=== PATIENT | female | born 1955 | race Caucasian/White ===

== ENCOUNTER 2019-02-20 08:08 | Inpatient (IN) ==
[2019-02-20] MEDS ORDERED: *HR* FentaNYL (PF) 100 MCG/2 ML VIAL ONE ×2 (08:19→11:25)
[2019-02-20] MEDS ORDERED: *HR* Propofol 200 MG/20 ML VIAL IVP ONE (08:19)
[2019-02-20] MEDS ORDERED: Lidocaine -MPF 4% 5 ML AMPUL ONE (08:19)
[2019-02-20] MEDS ORDERED: *HR* Midazolam HCl 2 MG/2 ML VIAL ONE (08:19)
[2019-02-20] MEDS ORDERED: Ondansetron 4 MG/2 ML VIAL ONE (08:20)
[2019-02-20] MEDS ORDERED: Lidocaine -MPF 2% 2 ML VIAL ONE (08:20)
[2019-02-20] MEDS ORDERED: *HR* Succinylcholine 200 MG/10 ML VIAL IVP ONE (08:20)
[2019-02-20] MEDS ORDERED: *HR* Phenylephrine 10 MG/ML VIAL ONE (08:20)
[2019-02-20] MEDS ORDERED: *HR* Rocuronium Bromide 50 MG/5 ML VIAL ONE (08:20)
[2019-02-20] MEDS ORDERED: Dexamethasone 4 MG/ML VIAL ONE (08:20)
[2019-02-20] MEDS ORDERED: Famotidine 20 MG/2 ML VIAL IVP ONE (08:22)
[2019-02-20] MEDS ORDERED: Acetaminophen IV 1,000 MG/100 ML INFUS..BTL IVPB ONE (08:23)
[2019-02-20] MEDS ORDERED: Gabapentin 300 MG CAPSULE PO ONE (08:23)
[2019-02-20] MEDS ORDERED: traMADol 50 MG TABLET PO ONE (08:23)
[2019-02-20] MEDS ORDERED: Ringers Solution, Lactated 1,000 ML IVC SCH (08:30)
[2019-02-20] MEDS ORDERED: levoFLOXacin 500 MG/100 ML 500 MG/100 ML BAG IVPB ONE (08:34)
[2019-02-20] MEDS ORDERED: Albuterol 2.5 MG/3 ML NEBULIZER IH ONE (08:35)
[2019-02-20] MEDS ORDERED: Heparin 1,000 UNITS/500 mL 500 ML ONE (08:41)
--- NOTE | 2019-02-20 09:22 | Anesthesia Evaluation PreOp ---
Date of Encounter: 02/20/19 Time of Encounter: 09:20 - Past History Planned Operation: Hand Assisted Left Nephroureterectomy Cardiac History: HTN, Hyperlipidemia Pulmonary History: Denies Any Significant HX HAND CROCHETER History: Denies Any Significant HX Other Medical History: Thyroid, GERD Anesthesia History: No Prior Anesthetic Complications : No Alcohol Use: occasionally Drug use: none Medications and Allergies Atorvastatin Calcium [Lipitor] 20 mg PO QPM 01/30/19 [History] Calcium Carbonate [Calcium] 1,000 mg PO DAILY 01/30/19 [History] Cholecalciferol (Vitamin D3) [Vitamin D3] 2,000 units PO DAILY 01/30/19 [History] Docusate Sodium [Dulcolax Stool Softener] 100 mg PO TID PRN 01/30/19 [History] Gluc 2Kcl/Chondr/Zoë Hy/Hy AC [Glucosamine & Chondroitin Cap] 2 cap PO DAILY 01/30/19 [History] Inulin [Fiber Gummies] 2 gm PO DAILY 01/30/19 [History] L.acidoph,Paracasei, B.lactis [Probiotic] 2 cap PO DAILY 01/30/19 [History] Levothyroxine Sodium [Levoxyl] 175 mcg PO SUTUTHSA 01/30/19 [History] Levothyroxine Sodium [Synthroid] 200 mcg PO MOWEFR 01/30/19 [History] Lisinopril [Zestril] 10 mg PO QPM 01/30/19 [History] Melatonin 6 mg PO HS 01/30/19 [History] Multivitamin [Daily Multiple Vitamin] 1 tab PO DAILY 01/30/19 [History] Ubidecarenone [Co Q-10] 100 mg PO DAILY 01/30/19 [History] Vitamin B Complex [B Complex] 1 tab PO DAILY 01/30/19 [History] Vitamin C/Biotin [Hair, Skin and Nails Gummies] 1 tab PO DAILY 01/30/19 [History] hydroCHLOROthiazide [Hydrochlorothiazide] 25 mg PO QPM 01/30/19 [History] Allergy/AdvReac Type Severity Reaction Status Date / Time Penicillins Allergy Hives Verified 02/20/19 08:41 - Meds/Allergy Pre-op Review Medications Reviewed: Yes Allergies Reviewed: Yes Beta Blockers on Current Med List: No Anesthesia Results - Labs Laboratory Tests 01/21/19 01/21/19 10:14 10:14 Hgb 13.6 Hct 41.4 Plt Count 253 Potassium 4.2 Creatinine 0.67 - Imaging EKG: report reviewed (SR) Anesthesia Exam O2 Sat Height 1.63 m Weight 70.307 kg Height: 5'4 Weight: 155 lbs NPO (# of Hours): MN Pain Scale: 0 - HEENT Pupil (Motor): Pupils equal, EOMI Mallampati: II Teeth: Normal Oral Opening: Greater than 3 - HAND CROCHETER LOC: Oriented HAND CROCHETER Motor: Normal RUE, Normal LUE, Normal RLE, Normal LLE, Normal Face HAND CROCHETER Sensory: Normal: RUE, LUE, RLE, LLE, Face - Cardiac Rhythm: Regular Murmur: None JVD: No Carotid Bruit: No - Pulmonary Breath Sounds: bilateral Clear Respiratory Effort: Symmetrical Anesthesia Assess/Plan ASA Score: 2 Level of consciousness: Cooperative, Oriented Anesthetic Plan: General Autologous Blood: No Monitoring Plan: Standard Monitors Recovery Plan: PACU (Discussed GA, agrees to proceed)
--- NOTE | 2019-02-20 09:23 | History & Physical Report ---
Date of Encounter: 02/20/19 Time of Encounter: 09:23 24 Hour HP Update - Instructions Instructions: If the History and Physical is less than 30 days old and was completed prior to A.M. admission and or procedure and has NOT been updated on calendar day of procedure please complete this update prior to performing procedure. - Update Patient reports changes in Medical Condition: No Changes in examination, assessment, or condition: No Changes in Medication: No Preop tests/diagnostics Reviewed: Yes Surgery Remains Indicated: Yes Consent for Planned Operative Procedure(s) Verified: Yes - Pre-Operative Checklist Preoperative Checklist Indicated: Yes Prophylactic Antibiotic Ordered: Yes Is VTE Prophylaxis Indicated?: Yes
[2019-02-20] MEDS ORDERED: Bupivacaine/EPI 1:200k 0.25%PF 30 ML VIAL ONE (09:27)
[2019-02-20] MEDS ORDERED: *HR* HYDROMORPHONE 2 MG/ML VIAL ONE (11:46)
--- NOTE | 2019-02-20 12:20 | Operative Note ---
Date of procedure: 02/20/19 Pre-op diagnosis: Left upper tract urothelial carcinoma Post-op diagnosis: same Procedure: Hand-assisted laparoscopic left nephroureterectomy, transurethral incision of left ureteral orifice Anesthesia: MANUEL Surgeon: Ryder Garcia Was there an him assistant present: Yes Circulation Clerk: Niru Posey Estimated blood loss (cc): 50 Specimen: Left kidney and ureter Condition: stable Disposition: PACU Procedure in Detail: Patient was prepped and draped in sterile fashion after she was placed in lithotomy position. Timeout seizure was performed. At this point I then placed the resectoscope into the patient's bladder. Patient had a stent coming out of her left ureteral orifice. I then used the reusable Bray knife to incise around the left ureter. This was carried down to fat. I then placed a 22- Yi catheter into the patient's bladder. Patient was then placed in lateral position and cushioned appropriately. Patient was then prepped and draped in normal sterile fashion. A second timeout was then performed. I then made a midline incision just above the umbilicus. Access to the peritoneum was then obtained. Hand port was then placed in standard fashion. I then placed 2 him assistant 12 mm trochars in standard fashion. I was easily able to palpate the left kidney. I was able to reflect the colon medially using the Harmonic scalpel. I was able to identify the left ureter and place to cathy across this. My him assistant aided in the driving of the camera to allow direct vision of the area. At this point I then was able to place a echelon stapler across the renal hilum. I was able to identify the isthmus connecting her left and right kidneys. I left this in place. I then proceeded to dissect the ureter distally down to the bladder which I was able to free it up from the bladder. I then used the echelon stapler to staple across the isthmus connecting the left and right kidneys. The kidney and ureter were then removed from the patient's abdomen. I then visualized the patient's resection bed with no obvious oozing seen. At this point I then placed 5 mL's of FloSeal into this bed. All counts were then correct. Fascia was then closed using running looped PDS. Skin was then closed is 4 Monocryl. Dermabond was placed over top. Patient taken to PACU in stable condition.
[2019-02-20] MEDS ORDERED: *HR* HYDROmorphone (PF) 1 MG/ML SYRINGE IVP PRN (12:31)
[2019-02-20] MEDS ORDERED: Ondansetron 4 MG/2 ML VIAL IVP ONE (12:31)
[2019-02-20] MEDS ORDERED: *HR* OxyCODONE Immed Rel 5 MG TABLET PO PRN (12:31)
[2019-02-20] MEDS ORDERED: Naloxone 0.4 MG/ML INJ IVP PRN (13:38)
[2019-02-20] MEDS ORDERED: Hyoscyamine SL 0.125 MG TAB.SUBL SL PRN (13:38)
[2019-02-20] MEDS ORDERED: Ondansetron 4 MG/2 ML VIAL IVP PRN (13:38)
[2019-02-20] MEDS: *HR* OxyCODONE Immed Rel 5 MG TABLET PO PRN (14:36)
[2019-02-20] MEDS: 0.9 % Sodium Chloride 1,000 ML IVC SCH (14:38)
--- NOTE | 2019-02-20 15:44 | Anesthesia Evaluation Post Op ---
Date of Encounter: 02/20/19 Time of Encounter: 13:30 - Vital Signs Vital Signs: Vital Signs Temp Pulse Resp BP Pulse Ox 02/20/19 13:45 97.5 F L 80 14 126/75 99 02/20/19 13:36 97.3 F L 76 12 115/70 100 02/20/19 13:26 97.3 F L 76 12 120/67 100 02/20/19 13:16 78 10 119/74 100 02/20/19 13:06 99.0 F 81 14 128/69 97 02/20/19 12:56 89 14 123/77 99 02/20/19 12:46 86 12 132/73 99 02/20/19 12:36 98.5 F 89 12 133/74 100 02/20/19 09:24 97.9 F 87 18 99/58 94 Intake and Output 02/19/19 02/20/19 02/20/19 23:59 07:59 15:59 Intake Total 1200 / 1200 Output Total 150 / 150 Balance 1050 / 1050 Intake: IV Fluids 1200 / 1200 Lactated Ringers 1,000 ML @ 25 1000 / 1000 mls/hr IVC .Q24H LAURA Rx#: [id number] Ofirmev 1,000 mg/100 ml 1,000 100 / 100 mg In 100 ml @ 400 mls/hr IVPB ONCE ONE Rx#:[id number] Levaquin Premix 500mg/100mL 500 100 / 100 mg In 100 ml @ 100 mls/hr IVPB PREOP ONE Rx#:[id number] Output: Estimated Blood Loss 50 / 50 Urine Amount (Catheter) 100 / 100 Other: Weight 70.307 kg Patient Weight 02/20/19 23:59 Weight 70.307 kg - Lungs Lungs: Clear Ascult./Percussion - Airway Airway: Non-obstructed - Cardiovascular Regular Rate, Baseline Rhythm - Mental Status Mental Status: Alert & Oriented, Answers Appropriately - Pain Pain Scale: 6 Pain Scale used: Numeric (1 - 10) - Nausea Vomiting Nausea Vomiting: Not Present - Hydration Hydration: Ice chips, Gimenez catheter - Discharge PostOp Status: Transfer Patient to floor Anes Supervising Prov Stmt: PT seen/evaluated, VSS and has met criteria for discharge to floor. - MD Chase
[2019-02-20] MEDS: Lisinopril 20 MG TABLET PO SCH (17:37)
[2019-02-20] MEDS ORDERED: hydroCHLOROthiazide 25 MG TABLET PO SCH (18:00)
[2019-02-21] MEDS: 0.9 % Sodium Chloride 1,000 ML IVC SCH ×3 (00:29→15:41)
[2019-02-21 05:28] LABS: Basophils % 0.2 %; Eosinophils % 0.1 %; Hematocrit 32.9 % (35.3-44.9); Hemoglobin 10.7 g/dL (11.5-15.4); Immature Granulocytes % 0.4 % (0-4); Lymphocytes % 15.3 %; Mean Corpuscular HGB Conc 32.5 g/dL (31.6-35.5); Mean Corpuscular Hemoglobin 30.6 pg (28.0-33.3); Monocytes # 1.5 K/mcL (0.0-1.3); Monocytes % 11.3 %; Neutrophils # 9.4 K/mcL (1.6-8.9); Platelet Count 194 K/mcL (140-400); Red Cell Distribution Width 13.6 % (11.5-14.5); Segmented Neutrophils % 72.7 %; White Blood Count 12.9 K/mcL (4.3-11.1)
[2019-02-21] MEDS: *HR* HYDROcodone/Acet 5/325 mg TABLET PO PRN ×2 (05:43→12:47)
[2019-02-21 05:47] LABS: BUN/Creatinine Ratio 15 (6-26); Blood Urea Nitrogen 15 mg/dL (8-23); Calcium 9.4 mg/dL (8.6-10.3); Carbon Dioxide 30 mEq/L (23-29); Chloride 100 mEq/L (98-107); Glucose 105 mg/dL (70-105); Osmolality,Calculated 281 (280-300); Potassium 4.3 mEq/L (3.5-5.1); Sodium 135 mEq/L (136-145); eGFR For African Americans > 60 (> 60); eGFR For Non-African Americans 56 (> 60)
--- NOTE | 2019-02-21 07:45 | Urology Progress Note ---
Date of Encounter: 02/21/19 Time of Encounter: 07:43 - Assessment and Plan (1) Malignant neoplasm of left renal pelvis Current Visit: Yes Status: Acute Assessment and plan: Patient doing well at this time. Pathology pending. Up and ambulate today. Continue with clear liquid diet until flatus. Anticipate discharge home [place]. Progress Note Narrative: POD 1 from hand-assisted laparoscopic nephroureterectomy left side. Patient did well overnight. She is up in chair last night and this morning. Patient with some mild nausea. Patient's blood pressure on the lower side this appears to be her relative baseline as her preoperative blood pressure was less than 100 systolic. Labs stable. Objective Initial Vital Signs Temp Pulse Resp BP Pulse Ox 97.9 F 87 18 99/58 95 02/20/19 09:24 02/20/19 09:24 02/20/19 09:24 02/20/19 09:24 02/20/19 09:24 - General physical appearance Present: well developed, well nourished - Abdomen Present: soft. Absent: tender (incisions C/D/I) - Labs 02/21/19 05:06 02/21/19 05:06 Diabetes panel 02/21/19 Range/Units 05:06 Sodium 135 L (136-145) mEq/L Potassium 4.3 (3.5-5.1) mEq/L Chloride 100 (98-107) mEq/L Carbon Dioxide 30 H (23-29) mEq/L BUN 15 (8-23) mg/dL Creatinine 0.99 (0.60-1.20) mg/dL Glucose 105 (70-105) mg/dL Calcium 9.4 (8.6-10.3) mg/dL Calcium panel 02/21/19 Range/Units 05:06 Calcium 9.4 (8.6-10.3) mg/dL Pituitary panel 02/21/19 Range/Units 05:06 Sodium 135 L (136-145) mEq/L Potassium 4.3 (3.5-5.1) mEq/L Chloride 100 (98-107) mEq/L Carbon Dioxide 30 H (23-29) mEq/L BUN 15 (8-23) mg/dL Creatinine 0.99 (0.60-1.20) mg/dL Glucose 105 (70-105) mg/dL Calcium 9.4 (8.6-10.3) mg/dL Adrenal panel 02/21/19 Range/Units 05:06 Sodium 135 L (136-145) mEq/L Potassium 4.3 (3.5-5.1) mEq/L Chloride 100 (98-107) mEq/L Carbon Dioxide 30 H (23-29) mEq/L BUN 15 (8-23) mg/dL Creatinine 0.99 (0.60-1.20) mg/dL Glucose 105 (70-105) mg/dL Calcium 9.4 (8.6-10.3) mg/dL Consult Discharge Plan - Plan Referrals: [facility] [Outside] Ryder Garcia MD [Primary Care Provider] -
[2019-02-21] MEDS: Lisinopril 20 MG TABLET PO SCH (17:29)
[2019-02-21] MEDS: *HR* OxyCODONE Immed Rel 5 MG TABLET PO PRN (20:34)
[2019-02-22] MEDS: *HR* OxyCODONE Immed Rel 5 MG TABLET PO PRN (07:35)
[2019-02-22] MEDS ORDERED: Ondansetron 4 MG/2 ML VIAL IVP PRN (07:44)
[2019-02-22] MEDS ORDERED: *HR* HYDROcodone/Acet 5/325 mg TABLET PO PRN (07:45)
[2019-02-22] MEDS ORDERED: Acetaminophen IV 1,000 MG/100 ML INFUS..BTL IVPB PRN (07:46)
--- NOTE | 2019-02-22 07:49 | Urology Progress Note ---
Date of Encounter: 02/22/19 Time of Encounter: 07:47 - Assessment and Plan (1) Malignant neoplasm of left renal pelvis Current Visit: Yes Status: Acute Assessment and plan: Patient may be developing a postoperative ileus. She has not passed flatus since the procedure. Unlikely discharge today. I decreased her IV fluids to 75 mL an hour. Started every 6 Zofran when necessary for nausea. Dulcolax suppository twice a day. We will check labs. Flat and upright abdominal x-ray. I have encouraged her to ambulate. Hold off on advancing diet. I decreased her narcotic pain medication and started IV Tylenol. Progress Note Narrative: Patient states she does not feel well. She has nausea. She reports "almost vomiting overnight "no fever. Not tolerating by mouth intake well. Objective Initial Vital Signs Temp Pulse Resp BP Pulse Ox 97.9 F 87 18 99/58 95 02/20/19 09:24 02/20/19 09:24 02/20/19 09:24 02/20/19 09:24 02/20/19 09:24 - General physical appearance Present: no distress - Additional Exam Incisions are closed and intact. Mild distention of the abdomen. Otherwise soft. - Labs 02/21/19 05:06 02/21/19 05:06 Consult Discharge Plan - Plan Referrals: [facility] [Outside] Ryder Garcia MD [Primary Care Provider] - 03/04/19 1:00 pm
[2019-02-22] MEDS: 0.9 % Sodium Chloride 1,000 ML IVC SCH ×4 (08:09→22:10)
[2019-02-22 09:15] LABS: BUN/Creatinine Ratio 14 (6-26); Blood Urea Nitrogen 12 mg/dL (8-23); Calcium 9.5 mg/dL (8.6-10.3); Carbon Dioxide 31 mEq/L (23-29); Chloride 99 mEq/L (98-107); Glucose 121 mg/dL (70-105); Osmolality,Calculated 275 (280-300); Sodium 132 mEq/L (136-145); eGFR For African Americans > 60 (> 60); eGFR For Non-African Americans > 60 (> 60)
[2019-02-22] MEDS: Bisacodyl 10 MG RECTAL SUPPOSITORY RC SCH ×2 (09:55→22:18)
[2019-02-22] MEDS: Lisinopril 20 MG TABLET PO SCH (17:49)
[2019-02-23] MEDS: 0.9 % Sodium Chloride 1,000 ML IVC SCH (00:23)
[2019-02-23 07:26] VITALS: BP 136/79
[2019-02-23] MEDS: Bisacodyl 10 MG RECTAL SUPPOSITORY RC SCH (07:59)
--- NOTE | 2019-02-23 08:24 | Discharge Summary ---
Orders not resulted at time of discharge: Pending orders 02/20/19 12:11 Surgical Pathology [PTH] Routine Date of Encounter: 02/23/19 Time of Encounter: 08:22 - Discharge Diagnosis (1) Malignant neoplasm of left renal pelvis Priority: Primary Status: Resolved - Hospital Course Hospital course: Ms. Olmedo is a 63 year old female status post nephroureterectomy. Discharge delayed secondary to mild ileus. Resolved with Dulcolax suppositories. Patient has had a good bowel movement. Minimal nausea. Feels better this morning. Labs not concerning. Plan for discharge today. Discharge with catheter in place. - Time Spent with Patient Total time spent providing and/or coordinating discharge services: Labs on day of discharge: Labs from last 24 hours 02/22/19 08:36 Sodium 132 L Potassium 4.0 Chloride 99 Carbon Dioxide 31 H BUN 12 Creatinine 0.88 Est GFR ( Amer) > 60 Est GFR (Non-Af Amer) > 60 BUN/Creatinine Ratio 14 Glucose 121 H Calculated Osmolality 275 L Calcium 9.5 - Impressions ITS Impressions Abdomen X-Ray 02/22/19 07:44 IMPRESSION: Small quantity of free subdiaphragmatic air. Extraluminal gas noted projecting in the left flank. Findings are consistent with recent laparoscopic surgical history. Scattered small bowel and colonic gas consistent with a mild ileus pattern. Bibasilar atelectasis. Findings were discussed with Jasen Silva MD at 6:00p.m. On 02/22/2019. D/ / Mario Paredes MD / Mario Paredes MD Interpreting Provider: Mario Paredes MD - Discharge Medications Prescriptions: New Bisacodyl [Dulcolax] 10 mg RC BID supp.rect HYDROcodone/Acet 5/325 mg [[place] 5-325 mg] 1 tab PO Q4HR PRN 3 Days #15 tablet PRN Reason: Mild To Moderate Pain Continued Vitamin B Complex [B Complex] 1 tab PO DAILY Cholecalciferol (Vitamin D3) [Vitamin D3] 2,000 units PO DAILY Docusate Sodium [Dulcolax Stool Softener] 100 mg PO TID PRN PRN Reason: Constipation Multivitamin [Daily Multiple Vitamin] 1 tab PO DAILY L.acidoph,Paracasei, B.lactis [Probiotic] 2 cap PO DAILY Melatonin 6 mg PO HS Lisinopril [Zestril] 10 mg PO QPM Atorvastatin Calcium [Lipitor] 20 mg PO QPM Levothyroxine Sodium [Levoxyl] 175 mcg PO SUTUTHSA Levothyroxine Sodium [Synthroid] 200 mcg PO MOWEFR hydroCHLOROthiazide [Hydrochlorothiazide] 25 mg PO QPM Vitamin C/Biotin [Hair, Skin and Nails Gummies] 1 tab PO DAILY Inulin [Fiber Gummies] 2 gm PO DAILY Ubidecarenone [Co Q-10] 100 mg PO DAILY Calcium Carbonate [Calcium] 1,000 mg PO DAILY Gluc 2Kcl/Chondr/Zoë Hy/Hy AC [Glucosamine & Chondroitin Cap] 2 cap PO DAILY Home Medications: Atorvastatin Calcium [Lipitor] 20 mg PO QPM 01/30/19 [History] Calcium Carbonate [Calcium] 1,000 mg PO DAILY 01/30/19 [History] Cholecalciferol (Vitamin D3) [Vitamin D3] 2,000 units PO DAILY 01/30/19 [History] Docusate Sodium [Dulcolax Stool Softener] 100 mg PO TID PRN 01/30/19 [History] Gluc 2Kcl/Chondr/Zoë Hy/Hy AC [Glucosamine & Chondroitin Cap] 2 cap PO DAILY 01/30/19 [History] Inulin [Fiber Gummies] 2 gm PO DAILY 01/30/19 [History] L.acidoph,Paracasei, B.lactis [Probiotic] 2 cap PO DAILY 01/30/19 [History] Levothyroxine Sodium [Levoxyl] 175 mcg PO SUTUTHSA 01/30/19 [History] Levothyroxine Sodium [Synthroid] 200 mcg PO MOWEFR 01/30/19 [History] Lisinopril [Zestril] 10 mg PO QPM 01/30/19 [History] Melatonin 6 mg PO HS 01/30/19 [History] Multivitamin [Daily Multiple Vitamin] 1 tab PO DAILY 01/30/19 [History] Ubidecarenone [Co Q-10] 100 mg PO DAILY 01/30/19 [History] Vitamin B Complex [B Complex] 1 tab PO DAILY 01/30/19 [History] Vitamin C/Biotin [Hair, Skin and Nails Gummies] 1 tab PO DAILY 01/30/19 [History] hydroCHLOROthiazide [Hydrochlorothiazide] 25 mg PO QPM 01/30/19 [History] Bisacodyl [Dulcolax] 10 mg RC BID supp.rect 02/23/19 [Rx] HYDROcodone/Acet 5/325 mg [[place] 5-325 mg] 1 tab PO Q4HR PRN 3 Days #15 tablet 02/23/19 [Rx] Allergies/Adverse Reactions: Allergy/AdvReac Type Severity Reaction Status Date / Time Penicillins Allergy Hives Verified 02/20/19 08:41 Date of admission: 02/20/19 14:03 Primary care physician: Ryder Garcia Discharging clinician: Jasen Silva Anticipated date of discharge: 02/23/19 Exam Initial Vital Signs Temp Pulse Resp BP Pulse Ox 97.9 F 87 18 99/58 95 02/20/19 09:24 02/20/19 09:24 02/20/19 09:24 02/20/19 09:24 02/20/19 09:24 - General physical appearance Present: no distress - Patient Status Disposition: Home, Self-Care Condition: Good Functional capacity at discharge: independent ambulation Overall status at discharge: patient is progressing back to baseline - Discharge Instructions Follow Up With: [facility] [Outside] Ryder Garcia MD [Primary Care Provider] - 03/04/19 1:00 pm Additional Instructions: Discharge with Gimenez catheter in place. Provide leg bag Do not remove catheter for any reason My office will contact patient with follow-up Okay to shower. No baths or swimming No heavy activity or lifting. Okay to walk for exercise Continue to use daily stool softeners - Diet and Activity Activity: other Diet: advance to your usual diet
== END 2019-02-23 10:45 | disposition home or self-care (01) ==
LOC: SAMDAY 08:08 → 3ANU 14:03
PROVIDERS: ADMIT Urology; ATTEND Urology